=== PATIENT | female | born 1945 | race Caucasian/White ===

== ENCOUNTER 2019-09-20 07:56 | Day surgery (SDC) | payer BC, SELFPAY ==
[2019-09-16 07:41] VITALS: BMI 34.7
--- NOTE | 2019-09-16 10:02 | HP_ITS ---
Intake Vital Signs 09/16/19 Height 5 ft 1 in 09/16/19 Weight: 165 lb 3 oz 09/16/19 BMI 31.1 09/16/19 BP 158/89 H 09/16/19 Blood Pressure Location Rt brachial 09/16/19 Position Sitting 09/16/19 Respiration 20 H 09/16/19 Pulse 89 09/16/19 Pulse Oximetry (%) 99 Intake Visit Reasons: +FOBT Chief Complaint: +ifobt Metal Sprayer Required: No Is patient in pain?: No Allergies Tetanus Vaccines and Toxoid Allergy (Mild, Verified 09/16/19 07:40) rash Medications cholecalciferol (vitamin D3) 2,000 unit tablet 2,000 unit PO DAILY 09/16/19 [History Confirmed 09/16/19] naltrexone 8 mg-bupropion 90 mg tablet,extended release tab PO 09/16/19 [History Confirmed 09/16/19] vitamin B complex 1 cap PO DAILY 09/16/19 [History Confirmed 09/16/19] Is last menstrual period known: No Post menopausal: Yes Patient : No PFSH Medical History (Updated 09/16/19 @ 09:59 by Thierno Martin MD) Guaiac positive stools (Acute) Hemorrhoid (Acute) Osteopenia (Acute) Positive colorectal cancer screening using Cologuard test (Acute) Surgical History (Updated 09/16/19 @ 07:31 by Eulalia Tang) History of dental surgery (Acute) Family History (Updated 09/16/19 @ 07:38 by Eulalia Tang) Father Hypertension Mother Hypertension Social History (Updated 09/16/19 @ 10:02 by Thierno Martin MD) Smoking Status: Former smoker HPI HPI HPI: RENEE FELIPE, is a 73 F who presents to the office today for HPI HPI Surgical H&P: Yes HPI: RENEE FELIPE, is a 73 F who presents to the office today for surgical consultation regarding positive occult stool testing for blood. The patient has never previously had a colonoscopy but is always relied upon stool for blood checks. Previously she is declined colonoscopy. She was referred now by her primary care physician Dr. Taurus Ramirez for surgical consideration regarding her positive stool and a written copy of my surgical consult and recommendations will be returned to Dr. Ramirez. It is of note that August 12, 2019 stool was positive for blood and a recheck on September 03, 2019 the stool remain positive for blood. As of August 12, 2019 her BUN was 14 and creatinine 0.81. White blood cell count was 8.28 with a hemoglobin 12.9 and hematocrit of 39.6 and a platelet count of 349,000. She is utilizing a product called Contrave and she has intentionally lost weight with that product. At age 73 the patient is still employed with [employer]. She denies bright red blood per rectum or melena. She states that occasionally she can sense some hemorrhoids but does not note any blood on the tissue. She denies any history of peptic ulcer disease. She does not take any antacids. She denies family history of colon cancer. ROS General General: No weight change, appetite, fatigue, colon cancer, breast cancer or weakness HEENT HEENT: No difficulty swallowing, eye injury, eye surgery, swollen glands or hoarseness Endo Endocrine: No thyroid disease, diabetes mellitus, thyroid cancer, Hair loss, heat intolerance or cold intolerance Cardio Cardiovascular: No murmur, pacemaker, heart disease, atrial fibrillation, high blood pressure, heart attack, heart stent, palpitations, shortness of breat with exertion or chest pain Psych Psychiatric: No depression, anxiety or hearing voices Resp Respiratory: No shortness of breath, No sleep apnea, No cough, No COPD, No asthma, No emphysema, No wheezing Gastro Gastrointestinal: No abdominal pain, No nausea or vomiting, No diarrhea, No constipation, Yes blood in stool, No acid reflux, Yes hemorrhoids, No ulcers, No gallbladder problem, No black,tarry stools Dc Hematologic: No blood thinners, No blood disorders, No bleeding, No anemia, No blood clots Neuro Neurologic: No weakness Exam Const General: cooperative, healthy appearing, comfortable, no acute distress Nutritional Appearance: overweight Orientation: alert, awake, oriented x3 HENMT Head: normal to inspection Resp Effort & Inspection: normal respiratory effort Auscultation: clear to auscultation bilaterally Cardio Rate: regular rate Rhythm: regular rhythm Heart Sounds: no murmurs GI Palpation: soft, no hepatosplenomegaly Auscultation: normal bowel sounds Skin General: no rashes or lesions noted Neuro Cognition: normal cognition Extrem General: no calf tenderness bilaterally Psych Affect: normal affect Assessment & Plan Problems 1. Guaiac positive stools R19.5 Plan Stool Hemoccult positive on 2 successive checks. Gross anemia not identified. Etiology to GI source of blood not clear. No specific symptoms to guide to upper or lower source. I recommend to the patient a esophagogastroduodenoscopy with possible biopsy and colonoscopy with possible biopsy or polypectomy as indicated. She is aware of the technique, benefit, risk, alternatives. If a credible source of bleeding can be identified then without an anemia probably we would not need to pursue a small bowel follow-through. If no credible source can be identified then I would need to discuss with the patient whether we would need to investigate the small bowel. She has had an opportunity to ask and have questions answered. We will schedule and proceed at her discretion. Clearly she is had anxiety over a colonoscopy for multiple years previously declining the procedure. I anticipate utilizing monitored anesthesia care. I very much appreciate the kind opportunity of assisting with her surgical referral. Cc: Dr. Taurus Martin M.D., F.A.C.S. Orders Orders: Colonoscopy Today EGD Today R19.5 Coding Level of Care Code 64617 Diagnoses Guaiac positive stools R19.5 09/16/19 1002 <Electronically signed by Thierno valdez MD> Date _ Thierno Martin MD I have re-examined the patient. There are no clinical changes since date of exam.
[2019-09-20 08:21] VITALS: BP 165/90; PULSE 99; RESP 18; TEMP 37.1; O2SAT 100; BMI 31.4
[2019-09-20] MEDS: Lactated Ringers 1,000 ML 100 ML IV (08:45)
--- NOTE | 2019-09-20 09:00 | EGD_PTH ---
PATIENT: RENEE FELIPE LOC: EN U#:[id number] AGE/SX: 73/F ROOM: RE09/20/[address]: Dr. Thierno Martin MD : 1945 BED: DIS: 09/20/2019 SPEC #: [id number] RECD: 09/20/19 11:05 STATUS: SHANNAN JAIDA #: [id number] GEMMA: 09/20/19 09:[address]: Thierno Martin DEPT: SURGICAL PATHOLOGY RECD BY: Nam Cobb ENTERED: 09/20/19 13:27 SP TYPE: EGD BIOPSY MILLY DR: Dr. Taurus Ramirez DO Tissues: A - Duodenum, NOS B - Gastric mucous membrane C - Esophageal mucous membrane Procedures: Surgery Specimen Level IV HEADER OPERATION: Colonoscopy, EGD ([facility]) PRE-OP DIAGNOSIS: Guaiac positive stools TISSUE SUBMITTED: A - Duodenal biopsy, B - Antral biopsy for H. pylori and pathology, C - Distal esophageal biopsy MICROSCOPIC DIAGNOSIS A. Duodenum, biopsy: Fragments of gastric mucosa with moderate chronic inflammation, congestion and hemorrhage. See comment. B. Antral biopsy: Mild gastritis. See microscopic description and comment. C. Distal esophageal biopsy: A fragment of squamous epithelium with minimal chronic inflammation. SJ:rg 09/21/19 COMMENT A. The findings may represent gastric metaplasia. B. The results of immunohistochemistry for Helicobacter pylori will be reported separately ([id number]). MICROSCOPIC DESCRIPTION Slides are reviewed. B. The specimen shows fragments of gastric mucosa with chronic inflammatory cell infiltrates in the lamina propria consisting of lymphocytes and plasma cells, consistent with mild chronic gastritis. Focal mucosal congestion is also noted. GROSS DESCRIPTION A - Received in fixative is one container labeled with the patient's name and designated duodenal biopsy. The specimen consists of two irregular fragments of light arizmendi soft tissue that in aggregate measure 0.4 x 0.2 x 0.1 cm. The specimen is totally submitted in one cassette. B - Received in fixative is one container labeled with the patient's name and designated antral biopsy. The specimen consists of one irregular fragment of light arizmendi soft tissue that measures 0.3 x 0.3 x 0.1 cm. The specimen is totally submitted in one cassette. C - Received in fixative is one container labeled with the patient's name and designated distal esophageal biopsy. The specimen consists of one irregular fragment of light arizmendi soft tissue that measures 0.2 x 0.2 x 0.1 cm. The specimen is totally submitted in one cassette. / BERNA:meche 09/20/19 TC:3 CPT: 14447 x3
--- NOTE | 2019-09-20 09:00 | IMM_PTH ---
PATIENT: RENEE FELIPE LOC: [facility] U#:[id number] AGE/SX: 73/F ROOM: RE09/20/[address]: Dr. Thierno Martin MD : 1945 BED: DIS: 09/20/2019 SPEC #: [id number] RECD: 09/20/19 14:55 STATUS: SHANNAN REAshok #: [id number] GEMMA: 09/20/19 09:[address]: Thierno Martin DEPT: IMMUNOHISTOCHEMISTRY RECD BY: Lilia Everett ENTERED: 09/20/19 14:55 SP TYPE: IMMUNO OTHR DR: Dr. Taurus Ramirez DO Tissues: B - Stomach, NOS Procedures: H Pylori (initial) PHYSICIAN & INSTITUTION [place] [id number] SPECIMEN INFORMATION: Tissue Source: B - Antral biopsy Clinical Info: Guaiac positive stools Specimen Number: [id number] CPT code: 81273 METHODOLOGY: Deparaffinized sections of prefer/formalin-fixed tissue or PAP/DQ stained slides are incubated with monoclonal/polyclonal antibodies/oligonucleotide probes. Localization is made via biotin free immunoperoxidase method. Appropriate controls are performed and reacted as expected. Results on target cell population are indicated in the following table: RESULTS: ANTIBODY / CLONE RESULT Block B H Pylori (polyclonal) negative These tests were developed and their performance characteristics determined by [facility]. They may not have been cleared or approved by the U.S. Food and Drug Administration. The FDA has determined that such clearance or approval is not necessary. INTERPRETATION: B. Antral biopsy: Negative for Helicobacter pylori organisms. SJ:meche 09/21/19
[2019-09-20 09:27] VITALS: BP 107/53; BP 165/90; PULSE 81; RESP 16; TEMP 35.9; O2SAT 99
--- NOTE | 2019-09-20 09:27 | OP.EGD_ITS ---
Patient Name: Estela Miller Procedure Date: 09/20/2019 8:59 AM Date of : 1945 Age: 73 Procedure: Upper GI endoscopy Indications: Hemocult positive stool Providers: Thierno Martin MD Referring MD: Fatou Tadeo Medicines: See the Anesthesia note for documentation of the administered medications Complications: No immediate complications. Procedure: Pre-Anesthesia Assessment: - Prior to the procedure, a History and Physical was performed, and patient medications and allergies were reviewed. The patient's tolerance of previous anesthesia was also reviewed. The risks and benefits of the procedure and the sedation options and risks were discussed with the patient. All questions were answered, and informed consent was obtained. Prior Anticoagulants: The patient has taken no previous anticoagulant or antiplatelet agents. ASA Grade Assessment: II - A patient with mild systemic disease. After reviewing the risks and benefits, the patient was deemed in satisfactory condition to undergo the procedure. After obtaining informed consent, the endoscope was passed under direct vision. Throughout the procedure, the patient's blood pressure, pulse, and oxygen saturations were monitored continuously. The gastroscope was introduced through the mouth, and advanced to the second part of duodenum. The upper GI endoscopy was accomplished without difficulty. The patient tolerated the procedure well. Scope In: 9:04:38 AM Scope Out: 9:09:56 AM Total Procedure Duration Time 0 hours 5 minutes 18 seconds Findings: A small hiatal hernia was present. The Z-line was variable and was found 40 cm from the incisors. Biopsies were taken with a cold forceps for histology. The entire examined stomach was normal. Biopsies were taken of the antrum with a cold forceps for histology. The examined duodenum was normal. Biopsies were taken with a cold forceps for histology. Impression: - Small hiatal hernia. - Z-line variable, 40 cm from the incisors. Biopsied. - Normal stomach. Biopsied. - Normal examined duodenum. Biopsied. Recommendation: - Discharge patient to home. - Resume previous diet. - Continue present medications. - Telephone my office for pathology results in 1 week. This is not suspected to be a source of blood loss/hem. positive stool Procedure Code(s): --- Professional --- 49547, Esophagogastroduodenoscopy, flexible, transoral; with biopsy, single or multiple Diagnosis Code(s): --- Professional --- K44.9, Diaphragmatic hernia without obstruction or gangrene K22.8, Other specified diseases of esophagus CPT copyright 2017 [employer] [place] [employer]. All rights reserved. The codes documented in this report are preliminary and upon customer operations specialist review may be revised to meet current compliance requirements. Thierno Martin MD 09/20/2019 9:27:34 AM This report has been signed electronically. Number of Addenda: 0 Note Initiated On: 09/20/2019 8:59 AM
--- NOTE | 2019-09-20 09:30 | OP.COLON_ITS ---
Patient Name: Estela Miller Procedure Date: 09/20/2019 9:10 AM Date of : 1945 Age: 73 Procedure: Colonoscopy Indications: Hemocult positive stool Providers: Thierno Martin MD Referring MD: Fatou Tadeo Medicines: See the Anesthesia note for documentation of the administered medications Patient Profile: Last Colonoscopy: none. The patient's first colonoscopy is today. Complications: No immediate complications. Procedure: Pre-Anesthesia Assessment: - Prior to the procedure, a History and Physical was performed, and patient medications and allergies were reviewed. The patient's tolerance of previous anesthesia was also reviewed. The risks and benefits of the procedure and the sedation options and risks were discussed with the patient. All questions were answered, and informed consent was obtained. Prior Anticoagulants: The patient has taken no previous anticoagulant or antiplatelet agents. ASA Grade Assessment: II - A patient with mild systemic disease. After reviewing the risks and benefits, the patient was deemed in satisfactory condition to undergo the procedure. After I obtained informed consent, the scope was passed under direct vision. Throughout the procedure, the patient's blood pressure, pulse, and oxygen saturations were monitored continuously. The Colonoscope was introduced through the anus and advanced to the cecum, identified by appendiceal orifice and ileocecal valve. The colonoscopy was performed without difficulty. The patient tolerated the procedure well. The quality of the bowel preparation was good. The ileocecal valve and the appendiceal orifice were photographed. Scope In: 9:12:19 AM Scope Withdrawal Time 0 hours 5 minutes 1 second Scope Out: 9:22:27 AM Total Procedure Duration Time 0 hours 10 minutes 8 seconds Findings: The digital rectal exam findings include non-thrombosed internal hemorrhoids and internal hemorrhoids that prolapse with straining, but spontaneously regress to the resting position (Grade II). A few diverticula were found in the sigmoid colon. The exam was otherwise without abnormality. Impression: - Non-thrombosed internal hemorrhoids and internal hemorrhoids that prolapse with straining, but spontaneously regress to the resting position (Grade II) found on digital rectal exam. - Diverticulosis in the sigmoid colon. - The examination was otherwise normal. - No specimens collected. Recommendation: - Discharge patient to home. - Resume previous diet. - Continue present medications. - Repeat colonoscopy in 10 years for screening purposes. Internal hemorrhoids possible source of hemocult positive stool. Procedure Code(s): --- Professional --- 77478, Colonoscopy, flexible; diagnostic, including collection of specimen(s) by brushing or washing, when performed (separate procedure) Diagnosis Code(s): --- Professional --- K64.1, Second degree hemorrhoids K57.30, Diverticulosis of large intestine without perforation or abscess without bleeding CPT copyright 2017 [place] [employer]. All rights reserved. The codes documented in this report are preliminary and upon toxicologist review may be revised to meet current compliance requirements. Thierno Martin MD 09/20/2019 9:30:28 AM This report has been signed electronically. Number of Addenda: 0 Note Initiated On: 09/20/2019 9:10 AM
[2019-09-20 09:32] VITALS: BP 109/55; BP 165/90; PULSE 76; RESP 14; O2SAT 99
[2019-09-20 09:37] VITALS: BP 108/56; BP 165/90; PULSE 77; RESP 14; O2SAT 98
[2019-09-20 09:42] VITALS: BP 117/55; BP 165/90; PULSE 76; RESP 14; TEMP 36.1; O2SAT 98
[2019-09-20 10:23] VITALS: BP 165/90
== END 2019-09-20 10:45 | disposition home or self-care (01) ==
LOC: EN 08:00 → AC 08:02
PROVIDERS: Family Provider Student in an Organized Health Care Education/Training Program; PCP Student in an Organized Health Care Education/Training Program; Referring Provider Student in an Organized Health Care Education/Training Program; Visit Provider Surgery
PROC: 0DJD8ZZ Inspection of Lower Intestinal Tract, Via Natural or Artificial Opening Endoscopic (ICD-10-PCS; CPT 45378; principal; 2019-09-20 08:55)
DX: K29.70 Gastritis, unspecified, without bleeding (principal); K44.9 Diaphragmatic hernia without obstruction or gangrene; K64.1 Second degree hemorrhoids; K57.30 Diverticulosis of large intestine without perforation or abscess without bleeding; M85.80 Other specified disorders of bone density and structure, unspecified site; Z78.0 Asymptomatic menopausal state; Z87.891 Personal history of nicotine dependence
CPT/HCPCS: 43239; 45378; 88305; 88342; J7120; J2405

== ENCOUNTER 2023-11-24 19:00 | Emergency (ER) | payer MEDICARE, SELFPAY ==
[2023-11-24] VITALS (23 sets, daily range): BP systolic 122–187; BP diastolic 68–112; PULSE 73–99; RESP 15–23; TEMP 35.5; O2SAT 92–98; BMI 37.9
--- NOTE | 2023-11-24 19:14 | EKG12_ITS ---
Test Reason : Blood Pressure : / mmHG Vent. Rate : 086 BPM Atrial Rate : 086 BPM P-R Int : 164 ms QRS Dur : 152 ms QT Int : 438 ms P-R-T Axes : 037 -07 119 degrees QTc Int : 524 ms Normal sinus rhythm Left bundle branch block Abnormal ECG Confirmed by LANNY PIERRE, KAR ([id number]), editor news KYREE PRICE ([id number]) on 11/26/2023 6:19:33 AM Referred By: PERRY Confirmed By:KAR CA MD
--- NOTE | 2023-11-24 19:36 | RAD_ITS ---
STUDY: X-RAY CHEST REASON FOR EXAM: Female, 77 years old. Chest pain TECHNIQUE: Frontal and lateral views of the chest. COMPARISON: None. FINDINGS: There is right mid lung scarring or atelectasis. There is no demonstrated pleural abnormality. Normal size heart. Normal mediastinum and tae. Normal visualized pulmonary arteries. Normal visualized aortic arch and descending thoracic aorta. There is demineralization of the osseous structures. There are diffuse degenerative changes of the visualized thoracic spine. Normal visualized ribs, clavicles, and shoulders. There is no demonstrated abnormality of the visualized soft tissue structures of the upper abdomen. RAD/Chest PA and Lateral IMPRESSION: Degenerative changes, as described above. No demonstrated acute cardiopulmonary process. Electronically Signed: Charles Salazar MD at 20:35 EDT ,
[2023-11-24 19:37] LABS: Absolute Lymphocyte Count 1.99 X10^3/uL (0.83-4.51); Absolute Neutrophil Count 6.9 X10^3/uL (2.0-7.7); Basophil# 0.04 X10^3/uL; Basophil% 0.4 % (0-1); Eosinophil# 0.04 X10^3/uL; Eosinophils% 0.4 % (0-5); Hematocrit 37.8 % (37-47); Hemoglobin 12.8 g/dL (12.0-15.0); Lymphocyte # 1.99 X10^3/ul (0.83-4.51); Lymphocyte % 20.3 % (19-41); Mean Corp Hgb Conc 33.9 g/dL (32-36); Mean Corpuscular Hgb 30.9 pg (27.0-32.0); Mean Corpuscular Volume 91.3 fL (81-99); Mean Platelet Vol. 9.8 fl (6.2-12.0); Monocyte# 0.77 X10^3/uL; Monocyte% 7.9 % (0-10); NRBC Flagged by Analyzer 0 % (0-5); Neutrophil # 6.92 X10^3/uL (2.7-7.7); Neutrophil % 70.7 % (47-70); Platelet Count 357 K/mm3 (150-450); RBC Distribution Width CV 12.5 % (11.6-14.6); RBC Distribution Width SD 41.8 fl (35.1-43.9); Red Blood Count 4.14 M/mm3 (4.2-5.4); White Blood Count 9.8 K/mm3 (4.4-11.0)
[2023-11-24 20:03] LABS: AST(SGOT) 23 U/L (15-37); Alanine Aminotransfer ALT/SGPT 22 U/L (13-56); Albumin, Serum 3.5 g/dL (3.2-5.0); Alkaline Phosphatase 78 U/L (45-117); Bilirubin, Direct 0.16 mg/dL (0.00-0.30); Globulin 3.9 g/dL (2.2-4.2); Protein, Total 7.4 g/dL (6.4-8.2)
[2023-11-24 20:08] LABS: Anion Gap 8 (5-15); BUN 17 mg/dL (7-18); BUN/Creat Ratio 18.7 RATIO (10-20); Calcium,Total 9.1 mg/dL (8.5-10.1); Chloride 101 mmol/L (98-107); Creatinine, Serum 0.91 mg/dL (0.55-1.02); EST Glomerular Filtration Rate 64 mL/min (>60); Est Glom Filt Rate - Afr Amer 77 mL/min (>60); Estimated Creatinine Clearance 54.91 ml/min; Glucose 123 mg/dL (74-106); Lipase 22 U/L (13-75); Potassium 3.2 mmol/L (3.5-5.1); Sodium Level 137 mmol/L (136-145); Troponin-I HS (w/2H Reflex) 10 pg/mL (3.0-54.0)
[2023-11-24 21:27] LABS: Reflex Troponin-HS? (from REC) Y
--- NOTE | 2023-11-24 21:42 | EDS_ITS ---
HPI History of Present Illness Chief Complaint: Chest Other Informant: patient Narrative Narrative: Patient is 77-year-old female with history of acid reflux and, hypertension hyperlipidemia presenting with palpitations as well as epigastric discomfort. Patient states she is felt a fluttering or irregular feeling in her chest last night that kept her up throughout the night. When she checked her blood pressure it was elevated. She followed up at PCP office today she had an EKG which did show some changes but they did not think she needed to come in to the ER if her symptoms were stable. She does have a stress scheduled for January 10. Throughout the day today she has developed some burning sensation in her epigastric region that radiates to her chest. She states it feels like her reflux but given these other symptoms she came in for further cardiac evaluation. She denies any other complaints or concerns at this time. [place] any new swelling of her legs, shortness of breath or difficulty breathing. PFSH PFS Medical History Guaiac positive stools Hemorrhoid Osteopenia Positive colorectal cancer screening using Cologuard test Home Medications cholecalciferol (vitamin D3) 50 mcg (2,000 unit) tablet 2,000 unit PO DAILY 09/16/19 [History Last Taken Unknown] hydrochlorothiazide 12.5 mg capsule 25 mg PO BID 11/24/23 [History Last Taken Unknown] levothyroxine 50 mcg tablet 50 mcg PO DAILY disorder of thyroid gland 11/24/23 [History Last Taken Unknown] meloxicam 15 mg tablet 15 mg PO DAILY PRN joint pain 11/24/23 [History Last Taken Unknown] Allergy/AdvReac Type Severity Reaction Status Date / Time Tetanus Vaccines and Toxoid Allergy Mild rash Verified 11/24/23 19:02 Family History Father Hypertension Mother Hypertension Surgical History History of dental surgery Social History Smoking Status: Former smoker ROS ROS ED Constitutional Constitutional ED: Denies chills or fever(s) ENT ENT ED: Denies sore throat Cardiovascular Cardiovascular: Reports as per HPI, chest pain and palpitations Respiratory/Chest Respiratory/Chest: Denies cough Gastrointestinal Gastrointestinal: Reports abdominal pain; Denies constipation, melena or vomiting Musculoskeletal Musculoskeletal: Denies arthralgias, back pain or myalgias Integumentary Denies rash Neurologic Neurologic: Denies headache(s) EXAM Physical Exam Const Vital Signs: 11/24/23 19:02 11/24/23 19:22 11/24/23 19:24 Temperature 96 F L Temperature Source Temporal Pulse Rate 99 Respiratory Rate 18 Respiratory Pattern Normal Blood Pressure 187/92 H Blood Pressure Mean 123 Pulse Ox 96 Oxygen Delivery Method Room Air Room Air Oxygen Flow Rate (L/min) 11/24/23 19:26 11/24/23 19:49 11/24/23 19:50 Temperature Temperature Source Pulse Rate 85 84 82 Respiratory Rate 17 21 H 23 H Respiratory Pattern Blood Pressure 157/68 H Blood Pressure Mean 97 Pulse Ox 98 97 97 Oxygen Delivery Method Room Air Oxygen Flow Rate (L/min) 11/24/23 20:00 11/24/23 20:10 11/24/23 20:20 Temperature Temperature Source Pulse Rate 82 86 80 Respiratory Rate 15 20 H 17 Respiratory Pattern Blood Pressure 133/79 H Blood Pressure Mean 97 Pulse Ox 97 94 95 Oxygen Delivery Method Room Air Oxygen Flow Rate (L/min) 11/24/23 20:30 11/24/23 20:40 11/24/23 21:06 Temperature Temperature Source Pulse Rate 81 80 Respiratory Rate 21 H 23 H 17 Respiratory Pattern Blood Pressure 139/84 H Blood Pressure Mean 100 Pulse Ox 96 96 96 Oxygen Delivery Method Room Air Oxygen Flow Rate (L/min) 98.6 11/24/23 21:10 11/24/23 21:20 11/24/23 21:30 Temperature Temperature Source Pulse Rate 84 77 80 Respiratory Rate 22 H 22 H 21 H Respiratory Pattern Blood Pressure 122/81 H Blood Pressure Mean 93 Pulse Ox 95 95 92 Oxygen Delivery Method Room Air Oxygen Flow Rate (L/min) 11/24/23 21:40 11/24/23 21:50 11/24/23 22:00 Temperature Temperature Source Pulse Rate 75 79 80 Respiratory Rate 19 H 17 22 H Respiratory Pattern Blood Pressure 145/86 H Blood Pressure Mean 105 Pulse Ox 96 96 94 Oxygen Delivery Method Oxygen Flow Rate (L/min) 11/24/23 22:10 11/24/23 22:20 11/24/23 22:30 Temperature Temperature Source Pulse Rate 73 74 80 Respiratory Rate 16 17 17 Respiratory Pattern Blood Pressure 181/112 H Blood Pressure Mean 133 Pulse Ox 96 94 96 Oxygen Delivery Method Oxygen Flow Rate (L/min) 11/24/23 22:40 11/24/23 22:44 11/24/23 22:50 Temperature Temperature Source Pulse Rate 80 80 74 Respiratory Rate 17 18 19 H Respiratory Pattern Blood Pressure 147/81 H Blood Pressure Mean 102 Pulse Ox 93 96 94 Oxygen Delivery Method Room Air Oxygen Flow Rate (L/min) Positive well nourished and well developed General Appearance ED: well developed and NAD HEENT Reports moist mucous membranes Eyes PERRL Neck supple Chest Wall inspection of chest normal and palpation of chest normal Resp normal respiratory effort and clear to auscultation bilaterally Cardio regular rate, regular rhythm and no murmurs Peripheral Pulses: pulses 2+ throughout GI normal to inspection, nondistended, normoactive bowel sounds, soft to palpation and non-tender Extremity normal to inspection General Extremety ED: Negative for edema General Extremity: Negative for edema Neuro oriented x3 Sensorium / Orientation: awake and alert Motor Exam: Negative for general weakness Psych mental status grossly normal Skin no rashes or lesions noted and no wounds Heart Score History: Slightly/Non-Suspicious ECG: Nonspecific Repolarization Age: >/= 65 years Risk Factors: 1 or 2 Risk Factors Troponin: </= Normal Limit Score: 4 MDM MDM MDM Narrative Medical decision making narrative: Patient presents for indigestion/discomfort in her epigastric/lower chest as well as a sensation of palpitations. She is currently not have any palpitations. She had somewhat changed EKG at her PCP office today when she was seen for this but did not tell us what it was. It sounds like it was a new left bundle branch block. Patient is relatively asymptomatic right now which is some mild sensation of indigestion. Differential includes ACS, pneumonia, pancreatitis, gastritis, GERD and electrode abnormality. Patient does not complain of any associated shortness of breath or other respiratory symptoms we will switch from pulmonary emboli. Workup is largely negative. She has normal CBC, normal CMP, normal high- sensitivity troponin x 2 and a normal lipase. 2 view chest x-ray viewed by myself as well as radiology does not show any acute process. Patient is given a GI cocktail as the symptoms could be more reflux related. Will follow-up outpatient and already has a stress test scheduled for January 10. Given return precautions. Patient and daughter verbalized agreement understand this plan. Lab Data Attestation: I reviewed the patient's lab results. Labs: Laboratory Results - last 24 hr 11/24/23 11/24/23 19:20 21:28 WBC 9.8 RBC 4.14 L Hgb 12.8 Hct 37.8 MCV 91.3 MCH 30.9 MCHC 33.9 RDW Std Deviation 41.8 RDW Coeff of Steffen 12.5 Plt Count 357 MPV 9.8 Immature Gran % (Auto) 0.300 Neut % (Auto) 70.7 H Lymph % (Auto) 20.3 [place] % (Auto) 7.9 Eos % (Auto) 0.4 Baso % (Auto) 0.4 Absolute Neuts (auto) 6.9 Absolute Lymphs (auto) 1.99 Nucleated RBC % 0 Sodium 137 Potassium 3.2 L Chloride 101 Carbon Dioxide 28.0 Anion Gap 8 BUN 17 Creatinine 0.91 Estim Creat Clear Calc 54.91 Est GFR (MDRD) Af Amer 77 Est GFR (MDRD) Non-Af 64 BUN/Creatinine Ratio 18.7 Glucose 123 H Calcium 9.1 Magnesium 2.0 Total Bilirubin 0.80 Direct Bilirubin 0.16 AST 23 ALT 22 Alkaline Phosphatase 78 Troponin I High Sens 10 11 Total Protein 7.4 Albumin 3.5 Globulin 3.9 Lipase 22 Radiography Chest X-Ray - ED: 2 View, Read by ED Physician, Read by Radiologist and No Acute Disease Diagnostic Testing: Clinical Impression(s) from Imaging Studies Chest X-Ray 11/24/23 19:36 IMPRESSION: Degenerative changes, as described above. No demonstrated acute cardiopulmonary process. Electronically Signed: Charles Salazar MD at 20:35 EDT , Rhythm Strip Rhythm Strip: Sinus Rhythm Rate: 86 Ectopy: None EKG Initial EKG: Attestation: I personally reviewed and interpreted this EKG as follows: Interpretation: LBBB Comments: Normal sinus rhythm at a rate of 86 bpm Left axis deviation Left bundle branch block Otherwise normal ST segments No prior EKG available for comparison Discharge Plan Triage Chief Complaint: Chest Other ED Provider: Vickie Herrera Dx/Rx/DC Orders Clinical Impression: Chest pain, Left bundle branch block (LBBB) Instructions: ED Chest Pain, Uncertain Cause Prescriptions: No Action cholecalciferol (vitamin D3) 2,000 unit tablet 2,000 unit PO DAILY hydrochlorothiazide 12.5 mg capsule 25 mg PO BID meloxicam 15 mg tablet 15 mg PO DAILY PRN (Reason: joint pain) levothyroxine 50 mcg tablet 50 mcg PO DAILY Primary Care Provider: Taurus Ramirez Referrals: Taurus Ramirez DO [Primary Care Provider] - Activity Restrictions/Additional Instructions: Your EKG showed a left bundle branch block which I am guessing is the abnormality your PCP noticed today. Your cardiac workup was largely normal. Blood pressure improved on intervention I would not make any changes to your blood pressure medicine. Please follow-up outpatient as scheduled for stress testing. If you find the GI cocktail helpful you can start taking daily 20 mg omeprazole to help with heartburn symptoms. If your symptoms progress worsen or change or you have further concerns please return to the emergency room. Disposition Disposition: Home, Self Care Discharge Date/Time: 11/24/23 23:25
[2023-11-24 21:55] LABS: Troponin-I HS 11 pg/mL (3.0-54.0)
[2023-11-24] MEDS: Mag Hydrox/Al Hydrox/Simeth 30 ML UDC PO (22:58)
== END 2023-11-24 23:25 | disposition home or self-care (01) ==
PROVIDERS: Emergency Provider Emergency Medicine; PCP Student in an Organized Health Care Education/Training Program; Visit Provider Emergency Medicine
DX: R07.9 Chest pain, unspecified (principal); Z87.891 Personal history of nicotine dependence; I44.7 Left bundle-branch block, unspecified
CPT/HCPCS: 71046; 80048; 80076; 83690; 83735; 84484; 85025; 93005; 99284; J7030; A4216